=== PATIENT | female | born 1945 | race Caucasian/White ===

== ENCOUNTER 2017-03-10 22:34 | Inpatient (IN) | payer MEDICARE, BC ==
[2017-03-10] MEDS ORDERED: LASIX40 M1 PO (23:23)
[2017-03-10] MEDS ORDERED: LASIX20 M1 PO (23:24)
[2017-03-10] MEDS ORDERED: KLOR-CON M2020 ME1 PO (23:24)
[2017-03-10] MEDS ORDERED: LANOXIN250 MC2 PO (23:25)
[2017-03-10] MEDS ORDERED: CRESTOR10 M1 PO (23:26)
[2017-03-10] MEDS ORDERED: TOPROL XL25 M1 PO (23:26)
[2017-03-10] MEDS ORDERED: SYNTHROID75 MC1 PO (23:27)
[2017-03-10] MEDS ORDERED: ASPIRIN EC81 MG PO (23:27)
[2017-03-10] MEDS ORDERED: COUMADIN PO (23:27)
[2017-03-10] MEDS ORDERED: VITAMIN C500 M3 PO (23:27)
[2017-03-10] MEDS ORDERED: POTASSIUM CHLO20 ME3 PO (23:30)
[2017-03-10] MEDS ORDERED: ROSUVASTATIN CA10 MG PO (23:30)
[2017-03-11 00:17] LABS: BASO % 0.4 % (0-2); EOS % 1.1 % (0-7); EOSINOPHIL ABSOLUTE COUNT 0.1 tho/cmm (0.0-0.7); HGB-HEMOGLOBIN 12.5 gm/dl (12.0-15.5); IMMATURE GRANULOCYTES ABSOLUTE 0.02 tho/cmm (0-0.03); IMMATURE GRANULOCYTES PERCENT 0.2 % (0-0.3); LYMPH % 17.3 % (20-45); LYMPH ABSOLUTE COUNT 1.5 tho/cmm (0.8-4.5); MCH (MEAN CORPUSCULAR HGB) 28.4 pg (28.0-32.0); MCHC MEAN CORPUSCULAR HGB CONC 32.9 % (32.0-36.0); MCV (MEAN CELL VOLUME) 86.4 fl (82.0-96.0); MEAN PLATELET VOLUME 9.1 cmc (9.4-12.4); MONO % 12.5 % (0-12); MONOCYTE ABSOLUTE COUNT 1.1 tho/cmm (0.0-1.2); NEUTROPHIL ABSOLUTE COUNT 5.8 tho/cmm (1.6-8.0); NEUTROPHIL-AUTOMATED 5.8 tho/cmm (1.6-8.0); NEUTROPHILS % 68.5 % (40-80); PLATELET COUNT 242 tho/cmm (150-450); WHITE BLOOD COUNT 8.5 tho/cmm (4.0-10.0)
[2017-03-11 00:46] LABS: ANION GAP 12 mmol/L (0-20); BLOOD UREA NITROGEN 21 mg/dl (6-24); CALCIUM 8.6 mg/dl (8.5-10.5); CARBON DIOXIDE-VENOUS 29 mmol/L (22-32); CHLORIDE 101 mmol/l (96-110); GLUCOSE 93 mg/dL (70-110); POTASSIUM 4.5 mmol/L (3.7-5.1); SODIUM 137 mmol/L (135-145); eGFR VALUE FOR BLACK 58 mL/Min
[2017-03-11 01:21] LABS: INR 2.4 INR (0.9-1.1)
[2017-03-11 03:51] LABS: URINE BILIRUBIN NEGATIVE (NEG); URINE BLOOD LARGE (NEG); URINE GLUCOSE (UA) NEGATIVE (NEG); URINE KETONE NEGATIVE (NEG); URINE LEUKOCYTE ESTERASE POSITIVE (NEG); URINE NITRITE NEGATIVE (NEG); URINE PROTEIN MODERATE (NEG); URINE SPECIFIC GRAVITY 1.015 (1.003-1.030)
[2017-03-11 04:15] LABS: URINE APPEARANCE CLOUDY; URINE BACTERIA 3+; URINE COLOR YELLOW; URINE EPITHELIAL CELLS 0 /[HPF] (0-10); URINE RBC FULL FIELD /[HPF] (0-5); URINE WBC FULL FIELD /[HPF] (0-5)
[2017-03-11 07:41] LABS: INR 2.4 INR (0.9-1.1); PROTHROMBIN TIME 28.2 SECONDS (9.0-13.6)
[2017-03-11] MEDS ORDERED: COUMADIN PO (10:16)
[2017-03-11 12:00] LABS: INR 1.7 INR (0.9-1.1); PROTHROMBIN TIME 20.5 SECONDS (9.0-13.6)
[2017-03-11 18:35] LABS: INR 1.5 INR (0.9-1.1); PROTHROMBIN TIME 17.5 SECONDS (9.0-13.6)
[2017-03-12 03:24] LABS: INR 1.4 INR (0.9-1.1); PROTHROMBIN TIME 16.5 SECONDS (9.0-13.6)
[2017-03-13 04:59] LABS: BASO % 0.1 % (0-2); EOS % 0.6 % (0-7); EOSINOPHIL ABSOLUTE COUNT 0.1 tho/cmm (0.0-0.7); HCT-HEMATOCRIT 29.6 % (34.0-49.0); HGB-HEMOGLOBIN 9.5 gm/dl (12.0-15.5); IMMATURE GRANULOCYTES ABSOLUTE 0.02 tho/cmm (0-0.03); IMMATURE GRANULOCYTES PERCENT 0.2 % (0-0.3); LYMPH % 13.6 % (20-45); LYMPH ABSOLUTE COUNT 1.2 tho/cmm (0.8-4.5); MCH (MEAN CORPUSCULAR HGB) 27.5 pg (28.0-32.0); MCHC MEAN CORPUSCULAR HGB CONC 32.1 % (32.0-36.0); MCV (MEAN CELL VOLUME) 85.8 fl (82.0-96.0); MEAN PLATELET VOLUME 8.7 cmc (9.4-12.4); MONO % 10.3 % (0-12); MONOCYTE ABSOLUTE COUNT 0.9 tho/cmm (0.0-1.2); NEUTROPHIL ABSOLUTE COUNT 6.6 tho/cmm (1.6-8.0); NEUTROPHIL-AUTOMATED 6.6 tho/cmm (1.6-8.0); NEUTROPHILS % 75.2 % (40-80); PLATELET COUNT 252 tho/cmm (150-450); RED BLOOD COUNT 3.45 mil/cmm (4.00-5.20); RED CELL DISTRIBUTION WIDTH 14.9 % (12.4-16.4); WHITE BLOOD COUNT 8.8 tho/cmm (4.0-10.0)
[2017-03-13 05:05] LABS: INR 1.3 INR (0.9-1.1); PROTHROMBIN TIME 15.8 SECONDS (9.0-13.6)
[2017-03-13 05:12] LABS: ANION GAP 14 mmol/L (0-20); BLOOD UREA NITROGEN 25 mg/dl (6-24); CALCIUM 8.2 mg/dl (8.5-10.5); CARBON DIOXIDE-VENOUS 27 mmol/L (22-32); CHLORIDE 105 mmol/l (96-110); CREATININE 1.27 mg/dl (0.50-1.10); GLUCOSE 101 mg/dL (70-110); POTASSIUM 4.6 mmol/L (3.7-5.1); SODIUM 141 mmol/L (135-145); eGFR VALUE FOR BLACK 49 mL/Min
[2017-03-13 13:45] LABS: URINE PRT/CR RATIO 0.13 Ratio (0.0-0.20); URINE TOTAL PROTEIN-RANDOM 5.5 mg/dl (<11.8)
[2017-03-14 04:30] LABS: BASO % 0.8 % (0-2); BASO ABSOLUTE COUNT 0.1 tho/cmm (0.0-0.2); EOS % 5.2 % (0-7); EOSINOPHIL ABSOLUTE COUNT 0.3 tho/cmm (0.0-0.7); HCT-HEMATOCRIT 27.8 % (34.0-49.0); HGB-HEMOGLOBIN 8.8 gm/dl (12.0-15.5); IMMATURE GRANULOCYTES ABSOLUTE 0.02 tho/cmm (0-0.03); IMMATURE GRANULOCYTES PERCENT 0.3 % (0-0.3); LYMPH % 22.5 % (20-45); LYMPH ABSOLUTE COUNT 1.4 tho/cmm (0.8-4.5); MCH (MEAN CORPUSCULAR HGB) 27.2 pg (28.0-32.0); MCHC MEAN CORPUSCULAR HGB CONC 31.7 % (32.0-36.0); MCV (MEAN CELL VOLUME) 86.1 fl (82.0-96.0); MEAN PLATELET VOLUME 8.4 cmc (9.4-12.4); MONO % 13.4 % (0-12); MONOCYTE ABSOLUTE COUNT 0.9 tho/cmm (0.0-1.2); NEUTROPHIL ABSOLUTE COUNT 3.7 tho/cmm (1.6-8.0); NEUTROPHIL-AUTOMATED 3.7 tho/cmm (1.6-8.0); NEUTROPHILS % 57.8 % (40-80); PLATELET COUNT 223 tho/cmm (150-450); RED BLOOD COUNT 3.23 mil/cmm (4.00-5.20); RED CELL DISTRIBUTION WIDTH 14.9 % (12.4-16.4); WHITE BLOOD COUNT 6.4 tho/cmm (4.0-10.0)
[2017-03-14 04:31] LABS: INR 1.3 INR (0.9-1.1); PROTHROMBIN TIME 15.8 SECONDS (9.0-13.6)
[2017-03-14 04:40] LABS: ANION GAP 11 mmol/L (0-20); BLOOD UREA NITROGEN 26 mg/dl (6-24); CALCIUM 7.8 mg/dl (8.5-10.5); CARBON DIOXIDE-VENOUS 26 mmol/L (22-32); CHLORIDE 110 mmol/l (96-110); CREATININE 1.01 mg/dl (0.50-1.10); GLUCOSE 83 mg/dL (70-110); POTASSIUM 4.2 mmol/L (3.7-5.1); SODIUM 143 mmol/L (135-145); eGFR VALUE FOR BLACK 65 mL/Min
[2017-03-15 05:17] LABS: INR 1.3 INR (0.9-1.1); PROTHROMBIN TIME 15.3 SECONDS (9.0-13.6)
[2017-03-15 11:14] LABS: HCT-HEMATOCRIT 30.4 % (34.0-49.0); HGB-HEMOGLOBIN 9.8 gm/dl (12.0-15.5); MCV (MEAN CELL VOLUME) 86.4 fl (82.0-96.0)
[2017-03-16 06:07] LABS: INR 1.4 INR (0.9-1.1)
[2017-03-16] MEDS ORDERED: MACROBID 100 M100 M1 PO (12:26)
[2017-03-16] MEDS ORDERED: LOVENOX40 MG/0.1 SC (12:28)
[2017-03-16] MEDS ORDERED: OXYCODONE HCL5 M1 PO (12:33)
[2017-03-16] MEDS ORDERED: ULTRAM50 M1 PO (12:34)
== END 2017-03-16 14:30 | DRG 470 ==
LOC: 5EB 22:34 → ORE 03-12 07:20 → PACU 03-12 09:13 → 5EB 03-12 10:00
PROVIDERS: Family Medicine; Physician Assistant; Registered Nurse; ADMIT Orthopaedic Surgery Foot and Ankle Surgery
DX: S72.002A Fracture of unspecified part of neck of left femur, initial encounter for closed fracture (principal); N17.9 Acute kidney failure, unspecified; I50.32 Chronic diastolic (congestive) heart failure; N39.0 Urinary tract infection, site not specified; I11.0 Hypertensive heart disease with heart failure; B96.20 Unspecified Escherichia coli [E. coli] as the cause of diseases classified elsewhere; E03.9 Hypothyroidism, unspecified; E78.5 Hyperlipidemia, unspecified; I48.2 Chronic atrial fibrillation
CPT/HCPCS: C1751; C1776; G8987-GO-CI; G8988-GO-CI; J0171; J0690; J1650; J1885; J2270; J2795; J7030; P9017